=== PATIENT | male | born 1955 | race Caucasian/White ===

== ENCOUNTER 2023-03-02 09:30 | Outpatient (RCR) | payer OTHER, SELFPAY ==
[2023-03-02 09:39] VITALS: BMI 28.3
[2023-03-02 11:06] VITALS: BMI 28.3
== END 2023-05-01 12:29 | disposition home or self-care (01) ==
LOC: ANHDMC 09:30
PROVIDERS: PCP Internal Medicine; Visit Provider Internal Medicine
DX: E11.65 Type 2 diabetes mellitus with hyperglycemia (principal); Z71.89 Other specified counseling; Z71.3 Dietary counseling and surveillance
CPT/HCPCS: 97802; G0108